=== PATIENT | male | born 1995 | race Two or more races ===

== ENCOUNTER 2024-03-07 15:58 | Emergency (ER) | payer SELFPAY | END 2024-03-07 18:15 | disposition home or self-care (01) | LOC: JP.ED 15:58 | DX: S82.832A Other fracture of upper and lower end of left fibula, initial encounter for closed fracture (principal); X50.9XXA Other and unspecified overexertion or strenuous movements or postures, initial encounter | CPT/HCPCS: 73610-26-LT; 73610-LT; 99283 ==

== ENCOUNTER 2025-02-21 06:51 | Day surgery (SDC) | payer MEDICAID ==
[2025-02-21] MEDS ORDERED: fentaNYL 100 MCG/2 ML SDV ONE (07:00)
[2025-02-21] MEDS ORDERED: Propofol 200 MG/20 ML SDV ONE (07:00)
[2025-02-21] MEDS ORDERED: Midazolam 1 MG/ML 2 ML SDV ONE (07:01)
[2025-02-21] MEDS: Lactated Ringers 1,000 ML IV SCH (07:30)
[2025-02-21] MEDS ORDERED: ceFAZolin 2 GM in Premix Bag 1 BAG IV ONE (08:20)
[2025-02-21] MEDS: Bupivacaine 0.5% 50 ML MDV ONE (10:58)
[2025-02-21] MEDS: Lidocaine 1% with EPINEPHrine 1:100,000 50 ML MDV ONE (11:44)
== END 2025-02-21 10:17 | disposition home or self-care (01) ==
LOC: JP.SDS 06:51
PROVIDERS: ATTEND Surgery
DX: Z51.11 Encounter for antineoplastic chemotherapy (principal); K21.9 Gastro-esophageal reflux disease without esophagitis
CPT/HCPCS: 36561; J0665; J2250; J2704; J3010; J7120; 00400-QZ